=== PATIENT | female | born 1975 | race Hispanic/Latino ===

== ENCOUNTER 2024-06-25 21:44 | Emergency (ER) | payer OTHER, SELFPAY ==
[2024-06-25 21:44] VITALS: BMI 31.4
[2024-06-25 21:50] VITALS: BP 121/79
--- NOTE | 2024-06-25 22:59 | ED.GENMED ---
History of Present Illness
General
Chief Complaint: Musculo-Skeletal Complaint
Source: patient and spouse
Exam Limitations: none
Time Seen by Provider: 06/25/24 22:42
History of Present Illness
History of Present Illness:
Patient slipped and fell injuring her right knee. Painful to bear weight. No other injury or complaint
Past History
Past History
ED Past Medical History: None
ED Past Surgical History: None
Social History
Tobacco: Non-smoker
Personal:
Living: with family
Review of Systems
Review of Systems
All Other Systems: Not applicable
Phy Exam
Physical Exam
Physical Exam:
General: Nontoxic appearing in no distress
Skin: Warm and dry, no rash
Neuro: Alert, nontoxic, grossly nonfocal
Psychiatric: Good eye contact and appropriate
Musculoskeletal: No obvious deformity to the right leg. No pain with hip rotation. Thigh within normal limits. Knee grossly normal. Able to straight leg raise. Good distal pulses and color. Calf nontender. Tenderness along the medial joint
line and tenderness with stressing the medial collateral ligament. No anterior laxity.
Course
Orders/Labs/Results
Orders:
Orders
06/25/24 21:53
Knee, Right 4 or More Views [CR Knee- Right 4 Or More View*] Urgent
Comment:
Reason For Exam: fall, right knee injury
06/25/24 22:58
Crutches-Treatment ONCE
Knee Immobilizer Right-Treatme ONCE
Ketorolac [Toradol] 30 mg IM NOW STA
Vital Signs
Initial and Last Documented VS:
Initial Vital Signs
Temp Pulse BP Pulse Ox
99.4 F 72 121/79 98
06/25/24 21:50 06/25/24 21:50 06/25/24 21:50 06/25/24 21:50
Last Documented Vital Signs
Temp Pulse BP Pulse Ox
99.4 F 72 121/79 98
06/25/24 21:50 06/25/24 21:50 06/25/24 21:50 06/25/24 21:50
MDM/Problems Addressed
Differential Diagnosis Includes:
Clinically right knee strain with medial collateral strain or injury. Splint crutches and orthopedic follow-up
*Radiology
Radiology exam reviewed: preliminary read by ED provider (Negative)
*Pulse Oximetry
Patient hypoxic: no
*Critical Care Note
Total Time (30-74mins, 75-104mins- exclusive of procedures): Not Applicable
ED Attending Note
-
Portions of this chart may have been created with voice recognition software.� Occasional wrong word or��sound alike� substitutions may have occurred due to the inherent limitations of voice recognition software.
Discharge Plan
Departure
Patient Disposition: Home (Routine Discharge)
Date of Disposition: 06/25/24
Time of Disposition: 23:00
Patient with high blood pressure during this ER visit?: Yes
Discharge Problem:
Right knee sprain/MCL sprain
Instructions: Knee Sprain (DC), BLOOD PRESSURE
Prescriptions:
No Action
amoxicillin-pot clavulanate 1 TABLET tablet
1 tab PO Q12 Qty: 14 0RF
ibuprofen 600 MG tablet
600 mg PO Q6 Qty: 20 0RF
Referrals:
Billy Cuellar MD [Active] - Follow up in 5-7 days
NONE,* [Family Provider] -
Activity Restrictions/Additional Instructions:
Advil or Motrin for pain
Interventions
Interventions:
*Risk Screen - Suicide Last Done: 06/25/24 21:45
Discharge Date and Time
Print Language: [place]
== END 2024-06-25 23:48 | disposition home or self-care (01) ==
LOC: EMR 21:44
PROVIDERS: EMERGENCY PHYSICIAN Emergency Medicine
DX: S83.411A Sprain of medial collateral ligament of right knee, initial encounter (principal); W01.0XXA Fall on same level from slipping, tripping and stumbling without subsequent striking against object, initial encounter; R03.0 Elevated blood-pressure reading, without diagnosis of hypertension
CPT/HCPCS: 99284; 29505; 96372; 73564